=== PATIENT | male | born 1975 | race Caucasian/White ===

== ENCOUNTER 2021-11-27 11:06 | Day surgery (SDC) | payer OTHER ==
[~2021-11-27] VITALS: Ht 182.9 cm; Wt 97.1 kg
[~2021-11-27 11:06] MED LIST: NS 1,000 ML IV ONE
[2021-11-27] MEDS ORDERED: LIDOCAINE 2% 100MG/5ML SDV (FOR ANES.) As Ordered ONE (13:13)
[2021-11-27] MEDS ORDERED: propofoL 200 MG/20 ML VIAL As Ordered ONE (13:13)
[2021-11-27 13:45] VITALS: BP 149/96
== END 2021-11-27 13:58 | disposition home or self-care (01) ==
LOC: M OPP 11:06
PROVIDERS: ATTEND Internal Medicine Gastroenterology
DX: Z12.11 Encounter for screening for malignant neoplasm of colon (principal); K64.1 Second degree hemorrhoids; K64.4 Residual hemorrhoidal skin tags

== ENCOUNTER → 2022-05-09 | Outpatient (CLI) | payer OTHER | LOC: M RAD 07:51 | PROVIDERS: ATTEND Family Medicine | DX: M25.371 Other instability, right ankle (principal) ==